=== PATIENT | female | born 1985 | race Caucasian/White ===

== ENCOUNTER → 2016-08-07 | Outpatient (CLI) | payer MEDICARE, MEDICAID ==
[~2016-08-07] MED LIST: AMOX-355 PO; AVIANE; BIRTH CONTROL; FLUO10CA29 PO; HYDR-3812 PO; LORA10CA PO; NITR100C3 PO; PEROXITINE
--- OUTSIDE RECORDS SUMMARY | 2016-08-07 08:54 | XMS REPORT | Continuity of Care Document ---
Author Author Interface Organization Interface Address Unknown Phone Unavailable Problems Problem Status Onset Date Classification Date Reported Comments Source Chiari malformation type II (disorder) Active Problem 10/2015 status post decompression, shunt insertion in the lumbar spine in 2000, revision of shunt in 2001 [facility] Depressive disorder (disorder) Active Problem 01/24/2016 [facility] History of calculus of kidney (situation) Resolved Problem 01/24/20162008, passed spontaneously [facility]. Liver function tests abnormal (finding) Active Problem [facility] Chiari malformation type II (disorder) Active Problem <sup>1</sup>status post decompression, shunt insertion in the lumbar spine in 2000, revision of shunt in 2001 [facility] Depressive disorder (disorder) Active Problem 04/10/2013 [facility] History of calculus of kidney (situation) Resolved Problem 04/10/2013 <sup>2</sup>2008, passed spontaneously [facility] Liver function tests abnormal (finding) Active Problem [facility] Care Chiari malformation type II (disorder) Active Problem 01/2015 status post decompression, shunt insertion in the lumbar spine in 2000, revision of shunt in 2001 [facility] Depressive disorder (disorder) Active Problem 01/26/2015 [facility] History of calculus of kidney (situation) Resolved Problem 01/26/20152008, passed spontaneously [facility] Liver function tests abnormal (finding) Active Problem [facility] Disturbance of skin sensation 01/22/2015 Diagnosis 2014 [facility]. Lumbar sprain 01/22/2015 Diagnosis 01/26/2015 [facility] With hydrocephalus, spina bifida, unspecified region 01/25/2015 Diagnosis 01/26/2015 [facility] Medications Medication Details Route Status Patient Instructions Ordering Provider Order Date Source No Known Medications No known medications Active [facility]. Reglan </br>10 mg=2 mL, Vial, IV Push, ONCE, Start Date: 01/19/16 17:00:00, Stop Date: 01/19/16 17:00:00 </br>Notes: Give over 2 minutes Common side effects: dizziness, headache, belly pain, restlessness, diarrhea. Inactive [facility]. Allergies, Adverse Reactions, Alerts Substance Category Reaction Severity Reaction type Status Date Reported Comments Source Sulfamethoxazole / Trimethoprim Assertion Drug allergy [facility]. codeine drug allergy Allergy Active [facility] acetaminophen-propoxyphene drug allergy Allergy Active [facility] meperidine drug allergy Allergy Active [facility] morphine drug allergy Allergy Active [facility] acetaminophen-oxycodone drug allergy Allergy Active [facility] ketorolac drug allergy Allergy Active [facility] Codeine Assertion Drug allergy [facility] Acetaminophen / Propoxyphene Assertion Drug allergy [facility]. Meperidine Assertion Drug allergy [facility] Morphine Assertion Drug allergy [facility] Acetaminophen / Oxycodone Assertion Drug allergy [facility]. Ketorolac Assertion Drug allergy [facility]. Immunizations Immunization Date Given Site Status Last Updated Comments Source No data available for this section No data available for this section [facility]. No data available for this section No data available for this section [facility]. Results Order Name Results Value Reference Range Date Interpretation Comments Source Vital Signs Vital Sign Value Date Comments Source Encounters Location Location Details Encounter Type Encounter Number Reason For Visit Attending Provider ADM Date DC Date Status Source [facility] [id number] Clinic ( Outpatient) [id number] EFFIE HALLMAN 04/06/2013 [facility] [id number] Emergency [id number] Osvaldo Peñanati 01/19/2016 01/19/2016 [facility] [id number] Emergency [id number] ABIEL CARRENO 01/16/2016 Active [facility] Emergency [id number] Lou Alcaraz 01/16/2016 [place]18/2016 [place] [facility] Emergency [id number] Noreen Crump 01/19/2016 [place]/21/[address] [facility] [id number] Gaby Ambrosio 01/22/2015 01/23/2015 [place] [facility] [id number] Clinic ( Outpatient) [id number] Gaby Ambrosio 01/22/2015 [facility] Procedures Procedure Code Date Perfomer Comments Source No data available for this section [facility].
--- NOTE | 2016-08-07 10:13 | Diagnostic Imaging Report ---
PROCEDURE: CT sinuses without contrast TECHNIQUE: Multiple contiguous axial images were obtained through the sinuses without the use of intravenous contrast. Coronal and sagittal reformations were then performed. INDICATION: Deviated septum. Nasal congestion. FINDINGS: There is mild mucosal thickening or mucous retention cyst in the posterior aspect of the left maxillary sinus. Partial opacification of the ethmoidal air cells on the left side is also seen. There is mild opacification in the sphenoidal sinuses as well. The frontal sinuses appear clear except for the inferior aspect on the left side. The ostiomeatal complex is patent on the right and obliterated with mucosal thickening on the left side. There is nasal septal deviation to the right. There is resulting narrowing of the upper nasal passages on the right side. There is also mild to moderate mucosal hypertrophy along the inferior turbinates more on the left. The orbits soft tissues appear symmetric. The mastoid air cells and middle ear cavities appear clear. IMPRESSION: Generally mild sinonasal disease. Dictated by: Dictated on workstation # [id number]
== END ==
LOC: RAD 08:50
PROVIDERS: ATTEND Otolaryngology Otolaryngology/Facial Plastic Surgery
DX: R09.81 Nasal congestion (principal); J34.2 Deviated nasal septum; J34.89 Other specified disorders of nose and nasal sinuses
CPT/HCPCS: 70486

== ENCOUNTER 2016-10-05 12:26 | Outpatient (CLI) | payer MEDICARE, MEDICAID ==
[~2016-10-05] VITALS: Ht 157.5 cm; Wt 52.7 kg
[~2016-10-05 12:26] MED LIST changes: -AMOX-355 PO; -FLUO10CA29 PO; -HYDR-3812 PO; -LORA10CA PO
[2016-10-05] MEDS ORDERED: FLUO10CA29 PO (12:53)
[2016-10-05] MEDS ORDERED: LORA10CA PO (12:53)
[2016-10-05 12:55] VITALS: BP 125/81
[2016-10-05 13:29] LABS: BASOPHILS % (AUTO) 0 % (0-10); EOSINOPHILS # (AUTO) 0.3 10^3/uL (0.0-0.3); EOSINOPHILS % (AUTO) 4 % (0-10); LYMPHOCYTES # (AUTO) 1.9 X 10^3 (1.0-4.0); LYMPHOCYTES % (AUTO) 26 % (12-44); MEAN CORPUSCULAR HEMOGLOBIN 28 PG (25-34); MEAN CORPUSCULAR HGB CONC 34 G/DL (32-36); MEAN CORPUSCULAR VOLUME 82 FL (80-99); MEAN PLATELET VOLUME 10.4 FL (7.4-10.4); MONOCYTES # (AUTO) 0.5 X 10^3 (0.0-1.0); MONOCYTES % (AUTO) 6 % (0-12); NEUTROPHILS # (AUTO) 4.8 X 10^3 (1.8-7.8); NEUTROPHILS % (AUTO) 64 % (42-75); PLATELET COUNT 205 10^3/uL (130-400); RED BLOOD COUNT 4.89 10^6/uL (4.35-5.85); RED CELL DISTRIBUTION WIDTH 12.9 % (10.0-14.5); WHITE BLOOD COUNT 7.5 10^3/uL (4.3-11.0)
[2016-10-05 14:03] LABS: ANION GAP 8 MMOL/L (5-14); BLOOD UREA NITROGEN 9 MG/DL (7-18); BUN/CREATININE RATIO 14; CALCIUM 9.4 MG/DL (8.5-10.1); CARBON DIOXIDE 22 MMOL/L (21-32); CHLORIDE 108 MMOL/L (98-107); CREATININE SERUM 0.64 MG/DL (0.60-1.30); GFR ESTIMATED > 60; GLUCOSE 82 MG/DL (70-105); POTASSIUM 4.3 MMOL/L (3.6-5.0); SODIUM 138 MMOL/L (135-145)
== END 2016-10-05 14:23 | disposition home or self-care (01) ==
LOC: PREOP 12:26
PROVIDERS: ATTEND Otolaryngology Otolaryngology/Facial Plastic Surgery
DX: Z01.812 Encounter for preprocedural laboratory examination (principal); Z11.2 Encounter for screening for other bacterial diseases; J34.2 Deviated nasal septum; J34.3 Hypertrophy of nasal turbinates
CPT/HCPCS: 36415; 80048; 85025; 87081

== ENCOUNTER 2016-10-09 06:35 | Day surgery (SDC) | payer MEDICARE, MEDICAID ==
[~2016-10-09] VITALS: Ht 157.5 cm; Wt 52.7 kg
[~2016-10-09 06:35] MED LIST changes: +FLUO10CA29 PO; +LORA10CA PO
[2016-10-09 06:45] VITALS: BP 112/76
--- NOTE | 2016-10-09 06:46 | Progress Note-Pre Operative ---
Pre-Operative Progress Note H&P Reviewed The H&P was reviewed, patient examined and no changes noted. Date H&P Reviewed: Oct 09, 2016 Time H&P Reviewed: 06:40 Pre-Operative Diagnosis: Deviated Nasal Septum, Bilat Hyper of Inf Turbs with Nasal Congestion KEVON IRVIN MD Oct 09, 2016 6:46 am
[2016-10-09] MEDS ORDERED: ROCURONIUM 50 MG/5 ML (ZEMURON) VIAL IV ONE (07:01)
[2016-10-09] MEDS ORDERED: SEVOFLURANE (ULTANE) 15 ML INHAL SOLN ONE ×4 (07:01→08:07)
[2016-10-09] MEDS ORDERED: DEXAMETHASONE PF 10 MG/ML (DECADRON) VIAL ONE (07:01)
[2016-10-09] MEDS ORDERED: LACTATED RINGERS 1,000 ML IV ONE ×2 (07:01→07:56)
[2016-10-09] MEDS ORDERED: ONDANSETRON 4 MG/2 ML (SDV) Z0FRAN ONE (07:01)
[2016-10-09] MEDS ORDERED: fentaNYL INJECTION 100 MCG/2 ML AMP ONE ×2 (07:01→08:33)
[2016-10-09] MEDS ORDERED: MIDAZOLAM 2 MG/2 ML (VERSED) VIAL ONE (07:02)
[2016-10-09] MEDS ORDERED: proPOfol 200 MG/20 ML (DIPRIVAN) VIAL IV ONE (07:02)
[2016-10-09] MEDS ORDERED: LIDOCAINE PF 2% 10 ML (XYLOCAINE) AMP ONE (07:02)
[2016-10-09] MEDS ORDERED: COCAINE HCL 4% 2 ML SYR ONE (07:06)
[2016-10-09] MEDS ORDERED: PHENYLEPHRINE 0.5% NASAL SPR (NEO-SYNEPHRINE) REG ONE (07:07)
[2016-10-09] MEDS ORDERED: LIDOCAINE/EPI 1%-1:100,000 (XYLOCAINE) 20ML ONE (07:07)
[2016-10-09] MEDS ORDERED: LACTATED RINGERS 1,000 ML IV PRN (07:39)
[2016-10-09] MEDS ORDERED: GLYCOPYRROLATE 0.2 MG/ML (ROBINUL) 2 ML VIAL ONE (08:07)
[2016-10-09] MEDS ORDERED: NEOSTIGMINE (BLOXIVERZ ) 1 MG/1ML 10 ML VIAL ONE (08:07)
[2016-10-09] MEDS ORDERED: ACETAMINOPHEN 325 MG TABLET/CAPLET (TYLENOL) PO PRN (08:15)
[2016-10-09] MEDS ORDERED: D5 1/2 NS W/KCL 20 MEQ/L 1,000 ML IV SCH (08:15)
[2016-10-09] MEDS ORDERED: HYDROcodone/APAP 5 MG/325 MG (LORTAB) TAB PO PRN (08:15)
[2016-10-09] MEDS ORDERED: ONDANSETRON 4 MG/2 ML (SDV) Z0FRAN IVP PRN (08:15)
--- NOTE | 2016-10-09 08:15 | Progress Note-Post Operative ---
Post-Operative Progess Note Surgeon (s)/Crab Backer (s) Surgeon KEVON IRVIN MD Crab Backer n/a Pre-Operative Diagnosis Deviated Nasal Septum, Bilat Hyper of Inf Turbs with Nasal Congestion Post-Operative Diagnosis same Post-Op Procedure Note Date of Procedure: Oct 09, 2016 Name of Procedure Performed: Nasal septoplasty, Bilat REd of INf Turbs Description & Findings Description and Findings: n/a Anesthesia Type get Estimated Blood Loss minimal Packing none. Specimen(s) collected/removed nasal septum KEVON IRVIN MD Oct 09, 2016 8:14 am
[2016-10-09] MEDS: fentaNYL INJECTION 100 MCG/2 ML AMP IVP PRN ×2 (08:40→08:45)
[2016-10-09] MEDS ORDERED: HYDR-3812 PO (09:13)
[2016-10-09] MEDS ORDERED: AMOX-355 PO (09:13)
[2016-10-09 09:20] VITALS: BP 115/79
[2016-10-09] MEDS: HYDROcodone/APAP 5 MG/325 MG (LORTAB) TAB PO PRN ×2 (09:30→09:55)
[2016-10-09 09:50] VITALS: BP 112/74
[2016-10-09 10:20] VITALS: BP_SYST 112; BP_SYST 117; BP_DIAS 70; BP_DIAS 74
== END 2016-10-09 10:50 | disposition home or self-care (01) ==
LOC: SDC 06:35
PROVIDERS: ATTEND Otolaryngology Otolaryngology/Facial Plastic Surgery
DX: J34.2 Deviated nasal septum (principal); J34.3 Hypertrophy of nasal turbinates
CPT/HCPCS: 84703; 88304

== ENCOUNTER 2016-11-08 01:57 | Emergency (ER) | payer MEDICARE, MEDICAID ==
[~2016-11-08] VITALS: Ht 157.5 cm; Wt 49.9 kg
[~2016-11-08 01:57] MED LIST changes: +AMOX-355 PO; +HYDR-3812 PO
[2016-11-08] MEDS ORDERED: TETANUS,DIPTH,PERTUSS P/F (BOOSTRIX) 0.5 ML VIAL IM STA (02:01)
[2016-11-08] MEDS ORDERED: L.E.T. SYRINGE 5 ML MM STA (02:01)
--- NOTE | 2016-11-08 02:17 | ED Fall/Injury ---
General Chief Complaint: Laceration Stated Complaint: ETOH Nursing Triage Note: PT TO ED 7 PER W/C W/ C/O LACERATION TO CHIN ONSET BODY WIRER AFTER FALLING AT "THE BREAK". PER PT'S FRIEND, PT HAS ETOH ON BOARD, POSS LOC NOTED PER PT ET FRIEND. PT TEARFUL, ASKING FOR HER DAD AT THIS TIME. Source: patient Exam Limitations: no limitations History of Present Illness Time seen by provider: 02:00 Initial Comments Here with report of laceration on her chin. She was at the bar drinking quite a bit when she fell and hit her face. Unsure loss of consciousness. She is interacting with her friend well. Unsure of last tetanus shot. No other injuries noted or reported. Occurred: just prior to arrival (30 minutes ago approximately) Severity: mild Injuries/Pain Location: face Context: lost balance Loss of Consciousness: unsure Associated Symptoms (Fall): No Abdominal Pain, No Chest Pain, No Neck Pain, Slurred Speech Allergies and Home Medications Allergies Coded Allergies: acetaminophen (Unverified Allergy, Mild, 10/05/16) meperidine (Unverified Allergy, Mild, 10/05/16) morphine (Unverified Allergy, Mild, DROWSINESS, 10/05/16) oxycodone (Unverified Allergy, Mild, 10/05/16) tramadol (Unverified Allergy, Mild, 10/05/16) Home Medications Fluoxetine HCl 10 Mg Capsule, 10 MG PO DAILY, (Reported) Loratadine 10 Mg Capsule, 10 MG PO DAILY, (Reported) Constitutional: see HPI, No chills, No fever Eyes: No Symptoms Reported Ears, Nose, Mouth, Throat: no symptoms reported Respiratory: no symptoms reported Cardiovascular: no symptoms reported Skin: see HPI, lesions (small laceration to the left side of the chin at the angle of jaw.) Past Qxbdgpt-Gsuzcw-Kihmum Hx Patient Social History Alcohol Use: Denies Use Recreational Drug Use: No Smoking Status: Never a Smoker 2nd Hand Smoke Exposure: No Recent Foreign Travel: No Contact w/Someone Who Travel: No Recent Infectious Disease Expo: No Recent Hopitalizations: No Seasonal Allergies Seasonal Allergies: Yes Surgeries HX Surgeries: Yes (BACK AND NECK FOR SCOLIOSIS) Surgeries: Section Respiratory Hx Respiratory Disorders: No Cardiovascular Hx Cardiac Disorders: No Neurological Hx 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) Reproductive System Hx Reproductive Disorders: No Sexually Transmitted Disease: No HIV/AIDS: No Female Reproductive Disorders: Denies Genitourinary Hx Genitourinary Disorders: Yes Genitourinary Disorders: Kidney Stones Gastrointestinal Hx Gastrointestinal Disorders: No Musculoskeletal Hx Musculoskeletal Disorders: Yes Musculoskeletal Disorders: Arthritis, Scoliosis, Chronic Back Pain Endocrine Hx Endocrine Disorders: No HEENT HX ENT Disorders: Yes (GLASSES, DEVIATED SEPTUM AND HYPERTROPHIED TURBINATES) Hearing Impairment: Denies Cancer Hx Cancer: No Psychosocial Hx Psychiatric Problems: Yes Behavioral Health Disorders: Anxiety, Depression Integumentary HX Skin/Integumentary Disorder: No Blood Transfusions Hx Blood Disorders: No Adverse Reaction to a Blood Tr: No (N/A) Reviewed Nursing Assessment Reviewed/Agree w Nursing PMH: Yes Family Medical History Significant Family History: No Pertinent Family Hx Physical Exam Vital Signs Vital Sign - Last 12Hours 11/08/16 01:57 Temp 99.9 Pulse 110 Resp 18 B/P (MAP) 126/91 Pulse Ox 97 O2 Delivery Room Air Capillary Refill : Less Than 3 Seconds General Appearance: WD/WN, no apparent distress HEENT: PERRL/EOMI, TMs normal, pharynx normal Neck: full range of motion, supple Cardiovascular: regular rate, rhythm, no murmur Respiratory: lungs clear, normal breath sounds Neurologic/Psychiatric: alert, other (slurred speech and smells of alcohol.) Skin: normal color, warm/dry, other (half centimeter laceration to the chin on the left side) Erving Coma Score Best Eye Response: (4) Open Spontaneously Best Verbal Response: (4) Confused Conversation Best Motor Response: (6) Obeys Commands Erving Total: 14 Laceration Repair : Wound Location: Face Other Wound Location Left-side of chin Wound's Depth, Shape: superficial Wound Explored: contaminated Irrigated w/ Saline (ccs): 20 Betadine Prep?: Yes (Hibiclens) Anesthesia: Lidocaine w/ Epi (LET) Wound Debrided: minimal Other Closure Supply: Wound Adhesive Progress Closed with Dermabond. Progress/Results/Core Measures Results/Orders My Orders Orders - ARIEL OSBORNE MD Dipht,Pertmack(Acell),Tet Adult (Boostrix (11/08/16 02:01) Let Solution (Let Solution) (11/08/16 02:01) Vital Signs/I&O Vital Sign - Last 12Hours 11/08/16 01:57 Temp 99.9 Pulse 110 Resp 18 B/P (MAP) 126/91 Pulse Ox 97 O2 Delivery Room Air Blood Pressure Mean: 103 Progress Note : Progress Note Seen and evaluated. Tetanus updated. LET applied to wound. Wound closure with Dermabond. Discharged home with return precautions. Patient verbalize understanding instructions and agreement with plan. Departure Impression Impression: Primary Impression: Facial laceration Qualified Codes: S01.81XA - Laceration without foreign body of other part of head, initial encounter Disposition: HOME, SELF-CARE Condition: Stable Departure-Patient Inst. Decision time for Depature: 02:18 Referrals: MICHAEL PINEDA MD (PCP) Primary Care Physician KALEE GONZALEZ APRN (Family) Primary Care Physician Patient Instructions: Laceration Repair With Glue (DC) Add. Discharge Instructions: All discharge instructions reviewed with patient and/or family. Voiced understanding. Leave glue in place until it falls off on its own. Do not cover with antibiotic ointment, makeup or any lotions/creams as this will prematurely remove the glue. You may use dry Band-Aid over wound. Return for worse pain, swelling, red streaks, foul-smelling drainage or other concerns as needed. You may take ibuprofen 600 mg every 8 hours as needed for pain. You may take Tylenol as needed per package directions for pain as well. ARIEL OSBORNE MD November 08, 2016 02:17
[2016-11-08 02:31] VITALS: BP 0/0
== END 2016-11-08 02:31 | disposition home or self-care (01) ==
LOC: EDUNIT# 01:57 → ER 01:59
DX: S01.81XA Laceration without foreign body of other part of head, initial encounter (principal); Z23 Encounter for immunization; F10.129 Alcohol abuse with intoxication, unspecified; W01.0XXA Fall on same level from slipping, tripping and stumbling without subsequent striking against object, initial encounter; Y99.8 Other external cause status
CPT/HCPCS: 12011; 90471; 90715

== ENCOUNTER 2018-12-13 10:22 | Emergency (ER) | payer MEDICARE ==
[~2018-12-13] VITALS: Ht 157.5 cm; Wt 52.2 kg
[~2018-12-13 10:22] MED LIST changes: +ACHD5005 PO; -HYDR-3812 PO
--- NOTE | 2018-12-13 11:27 | Diagnostic Imaging Report ---
PROCEDURE: CT cervical spine without contrast. TECHNIQUE: Multiple contiguous axial images were obtained through the cervical spine without the use of intravenous contrast. Sagittal and coronal reformations were then performed. Auto Exposure Controls were utilized during the CT exam to meet ALARA standards for radiation dose reduction. INDICATION: Nontraumatic neck pain. FINDINGS: Upper T-spine laminectomies have been performed to the defect as a cervical canalicular catheter is advanced with its distal tip at the C6 mid vertebral body level. There is a partial disc obliteration and ankylosis across the C3-C4 as well as the T2-T3 levels. There is left-sided facet ankylosis at the C3-C4 level and right-sided upper T-spine facet ankylosis. Acute bony abnormality is not identified. No paravertebral mass hemorrhage or fluid collection. There is previous occipital decompressive craniectomy. There is no mastoid effusion. The middle ear cavity is clear. There is a small amount of frothy debris within the partially visualized left sphenoid sinus and membrane thickening in the partially visualized left maxillary. IMPRESSION: Chronic bony changes and postoperative intervention. No acute cervical pathology found. Partial visualization of some paranasal sinus disease. No mass or fluid collection evident. Dictated by: Dictated on workstation # [id number]
--- NOTE | 2018-12-13 11:30 | Diagnostic Imaging Report ---
INDICATION: Pain TECHNIQUE: Three views of the right shoulder CORRELATION STUDY: None FINDINGS: There is no acute fracture or dislocation at the right shoulder. There is a abnormal somewhat thickened irregular appearance about the cortex of proximal right humeral shaft. Slight bony protuberance is present. Likely long-standing and chronic. Slightly thickened appearance about the scapula is also noted. There is partial visualization of apparent shunt tubing over the right chest. IMPRESSION: 1. Negative for acute fracture or dislocation of the right shoulder. Likely chronic change about the shoulder girdle. Dictated by: Dictated on workstation # [id number]
--- NOTE | 2018-12-13 11:33 | Diagnostic Imaging Report ---
PROCEDURE: CT right shoulder without contrast. TECHNIQUE: Multiple contiguous axial images were obtained through the right shoulder without the use of intravenous contrast. Sagittal and coronal reformations were then performed. Auto Exposure Controls were utilized during the CT exam to meet ALARA standards for radiation dose reduction. Date: December 13, 2018. Indication: 33-year-old female, right shoulder pain. No known injury. Comparison: None. Findings: The humeral head is normally positioned relative to the glenoid. There is no pronounced glenohumeral joint space loss. There is no osteophyte formation. There is no subchondral cystic change. The acromioclavicular joint is normally aligned. There are no prominent acromioclavicular degenerative changes. There is no os acromiale. There is no identified acute fracture. There are multiple abnormal osseous outpouchings which are contiguous with the intramedullary cavity compatible with multiple osteochondromas. A small lesion involving the distal clavicle at its anterior aspect is seen on axial image 36 measuring 4 x 4 mm in size. There are multiple osteochondromas of the right proximal humerus with perhaps the largest being a broad-based osteochondroma measuring up to approximately 2.2 cm in craniocaudal dimension at its base and having an axial dimension of roughly 0.9 x 1.0 cm. There is no finding to suggest malignant transformation of any of the osteochondroma is present. There is also an osteochondroma associated with the right-sided rib on axial image 149. There is an additional smaller osteochondroma associated with the right-sided rib on axial image 187. There is an osteochondroma arising from the inferior aspect of the scapula which is small in size. There is no fatty atrophy of the rotator cuff musculature. There is nondiagnostic direct assessment of the rotator cuff tendons on CT. The visualized portions of the right lung are clear. There is no obvious fluid collection or other soft tissue abnormality identified on CT. Impression: 1. Numerous benign osteochondromas which are involving the right distal clavicle, right proximal humerus, inferior scapula, and right-sided ribs. No finding to suggest malignant transformation or other complication. 2. Grossly unremarkable appearance of the glenohumeral and acromioclavicular joints. 3. No identified soft tissue abnormality on CT. Dictated by: Dictated on workstation # [id number]
[2018-12-13] MEDS ORDERED: METH4TAB PO (12:11)
--- NOTE | 2018-12-13 12:11 | ED Upper Extremity ---
General Chief Complaint: Upper Extremity Stated Complaint: RT SHOULDER PAIN Nursing Triage Note: AMB TO ROOM C/O R SHOULDER FOR 3 MONTHS WAS SEEN AT [facility] IN AUGUST GIVEN MEDS. WHICH HELPED SOME. CON'T TO HAVE PAIN WAS GIVNE A INJECTION 1 WEEK AGO AT [facility]. Nursing Sepsis Screen: No Definite Risk Source: patient History of Present Illness Date Seen by Provider: Dec 13, 2018 Time Seen by Provider: 10:33 Initial Comments PT ARRIVES VIA POV FROM HOME C/O RIGHT SHOULDER PAIN IS A CHRONIC PROBLEM, WORSE FOR 3 MONTHS AND IS NO DIFFERENT TODAY NO INJURY, BUT STATES THE LAST FEW MONTHS SHE HAS HAD TO LIFT HER GARAGE DOOR BECAUSE IT HAS BEEN BROKEN STATES PAIN IS BETTER AT TIMES, THEN WORSE AT TIMES STATES SHE HAS CHRONIC NECK AND BACK PAIN AND HAS HAD MULTIPLE SURGERIES ON NECK AND BACK AT [place]OTH AND "IN [place]" --DOES NOT HAVE A LOCAL ORTHOPEDIC SURGEON NO PARESTHESIAS OR MOTOR DEFICITS FOR THE MOST PART, BUT STATES "WHEN THE PAIN GETS BAD, SOMETIMES I GET TINGLING IN MY FINGERTIPS" STATES PAIN IS ALSO TO RIGHT LATERAL NECK/TRAPEZIUS AREA. STATES SHE WAS SEEN AT [facility] FOR THIS PROBLEM IN AUGUST AND WAS GIVEN AN UNKNOWN ANTI-INFLAMMATORY--STATES IT DID HELP AT TIMES WENT BACK TO [facility] 1 WEEK AGO AND GOT A STEROID INJECTION "SOMEWHERE IN MY UPPER BACK" --HELPED A LITTLE BIT STATES SHE HAS NOT TAKEN ANYTHING FOR PAIN TODAY STATES SHE TOOK A HYDROCODONE AT 2200 LAST PM--TAKES " NEEDED" FOR CHRONIC NECK AND BACK PAIN PT IS RIGHT HANDED LMP 11/21/18, NORMAL. HAS IUD IN PLACE PCP: [facility] Allergies and Home Medications Allergies Coded Allergies: acetaminophen (Unverified Allergy, Mild, 10/05/16) meperidine (Unverified Allergy, Mild, 10/05/16) morphine (Unverified Allergy, Mild, DROWSINESS, 10/05/16) oxycodone (Unverified Allergy, Mild, 10/05/16) tramadol (Unverified Allergy, Mild, 10/05/16) Home Medications Fluoxetine HCl 10 Mg Capsule, 10 MG PO DAILY, (Reported) Loratadine 10 Mg Capsule, 10 MG PO DAILY, (Reported) Methylprednisolone 4 Mg Tab.ds.pk, 4 MG PO UD Prescribed by: MODESTA GREEN on 12/13/18 1211 Patient Home Medication List Home Medication List Reviewed: Yes Review of Systems Constitutional: no symptoms reported EENTM: no symptoms reported Respiratory: no symptoms reported Cardiovascular: no symptoms reported Gastrointestinal: no symptoms reported Genitourinary: no symptoms reported LMP: Nov 21, 2018 Control/STD Prophylaxis: IUD Musculoskeletal: see HPI Skin: no symptoms reported Psychiatric/Neurological: See HPI; Denies Headache Past Utwlhlk-Pgvccj-Rkmmhz Hx Patient Social History Alcohol Use: Occasionally Uses Recreational Drug Use: No Smoking Status: Never a Smoker 2nd Hand Smoke Exposure: No Recent Foreign Travel: No Contact w/Someone Who Travel: No Recent Infectious Disease Expo: No Recent Hopitalizations: No Seasonal Allergies Seasonal Allergies: Yes Past Medical History Surgeries: Yes (BACK AND NECK FOR SCOLIOSIS--STATES SHE HAS HAD 7 SURGERIES ON HER NECK AND BACK--AT AND "[place]"; MEAT TRIMMER SHUNT; SURGERY FOR ARNOLD-CHIARI SYNDROME) Section, Neurological, Orthopedic Respiratory: No Cardiac: No Neurological: Yes (MEAT TRIMMER SHUNT; ARNOLD-CHIARI SYNDROME) Reproductive Disorders: No Female Reproductive Disorders: Denies 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 Sexually Transmitted Disease: No HIV/AIDS: No Genitourinary: Yes Kidney Stones Gastrointestinal: No Musculoskeletal: Yes (CHRONIC NECK AND BACK PAIN ) Arthritis, Scoliosis, Chronic Back Pain Endocrine: No Hearing Impairment: Denies Cancer: No Psychosocial: Yes Anxiety, Depression Integumentary: No Blood Disorders: No Adverse Reaction/Blood Tranf: No (N/A) Family Medical History No Pertinent Family Hx Physical Exam Vital Signs Vital Signs - First Documented 12/13/18 10:28 Temp 98.2 Pulse 81 Resp 18 B/P (MAP) 136/71 (92) Pulse Ox 100 O2 Delivery Room Air Capillary Refill : Less Than 3 Seconds Height, Weight, BMI Height: 5'2.00" Weight: 115lbs. 3.0oz. 52.052159gx; 21.3 BMI Method:Stated General Appearance: WD/WN, no apparent distress, other Neck: non-tender, full range of motion, supple, normal inspection Cardiovascular: normal peripheral pulses, regular rate, rhythm, no murmur Respiratory: normal breath sounds, no respiratory distress, no accessory muscle use Gastrointestinal: soft Back: no CVA tenderness, no vertebral tenderness Shoulder: normal inspection, non-tender, no evidence of injury, normal ROM Elbow/Forearm: normal inspection Wrist: Yes normal inspection Hand: normal inspection Neurologic/Tendon: normal sensation, normal motor functions, normal tendon functions 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, no motor/sensory deficits, alert, normal mood/affect, oriented x 3 Skin: normal color, warm/dry; No rash Progress/Results/Core Measures Results/Orders My Orders Orders - MODESTA GREEN DO Ct Cervical Spine Wo (12/13/18 10:39) Ct Extremity Upper Right Wo (12/13/18 10:39) Shoulder, Right, 3 Views (12/13/18 10:39) Vital Signs/I&O 12/13/18 12/13/18 10:28 12:16 Temp 98.2 98.2 Pulse 81 81 Resp 18 18 B/P (MAP) 136/71 (92) 136/71 (92) Pulse Ox 100 100 O2 Delivery Room Air Blood Pressure Mean: 92 Progress Progress Note : Progress Note UNEVENTFUL ER STAY PT STATES THAT PAIN IS ONLY WITH CERTAIN MOVEMENTS OR POSITIONS, OR WHEN SHE TRIES TO SLEEP--POINTS TO RIGHT TRAPEZIUS AND SHOULDER AND UPPER ARM AREA AREAS OF PAIN NO TENDERNESS TO THESE AREAS AT DISMISSAL, PT STATES SHE ALSO TAKES TIZANIDINE ON AN " NEEDED" BASIS, BUT HAS NOT TAKEN ANY TODAY OR FOR THE LAST WEEK Diagnostic Imaging Comments XRAYS RIGHT SHOULDER--CHRONIC CHANGES, NO ACUTE PROCESS CT CERVICAL SPINE--NO ACUTE PROCESS, POSTOP AND CHRONIC CHANGES CT RIGHT SHOULDER/UPPER ARM--NO ACUTE PROCESS, CHRONIC CHANGES ALL PER RADIOLOGIST REPORTS AT 1202 Reviewed: Reviewed by Me Departure Impression Primary Impression: Chronic neck and back pain Additional Impression: Chronic right shoulder pain Disposition: 01 HOME, SELF-CARE Condition: Stable Departure-Patient Inst. Referrals: [facility] (PCP/Family) Primary Care Physician Patient Instructions: Chronic Neck Pain (DC), Chronic Pain (DC) Add. Discharge Instructions: ALTERNATE ICE AND HEAT TO SORE AREA AT 20 MINUTE INTERVALS TAKE YOUR TIZANIDINE FOR MUSCLE SPASMS TAKE YOUR HYDROCODONE PRESCRIBED FOR PAIN FOLLOW UP WITH [facility] THIS WEEK FOR FURTHER CARE All discharge instructions reviewed with patient and/or family. Voiced understanding. Scripts Methylprednisolone (Medrol) 4 Mg Tab.ds.pk 4 MG PO UD, #1 PKG Prov: MODESTA GREEN DO 12/13/18 MODESTA GREEN DO Dec 13, 2018 12:11
[2018-12-13 12:16] VITALS: BP 136/71
== END 2018-12-13 12:19 | disposition home or self-care (01) ==
LOC: EDUNIT# 10:22 → ER 10:24
DX: M25.511 Pain in right shoulder (principal); M54.2 Cervicalgia; M54.6 Pain in thoracic spine; G89.29 Other chronic pain; F41.9 Anxiety disorder, unspecified; F32.9 Major depressive disorder, single episode, unspecified; Z87.442 Personal history of urinary calculi; Z88.5 Allergy status to narcotic agent; Z90.710 Acquired absence of both cervix and uterus
CPT/HCPCS: 72125; 73030; 73200

== ENCOUNTER 2021-04-10 05:42 | Outpatient (CLI) | payer MEDICARE ==
[~2021-04-10] VITALS: Ht 157.5 cm; Wt 54.4 kg
[~2021-04-10 05:42] MED LIST changes: +METH4TAB PO
[2021-04-11] MEDS ORDERED: LINA145C PO (13:09)
[2021-04-11] MEDS ORDERED: TIZA4TAB4 PO (13:09)
[2021-04-11] MEDS ORDERED: ALPR0.5T7 PO (13:09)
[2021-04-11] MEDS ORDERED: LORA10TA76 PO (13:09)
[2021-04-11] MEDS ORDERED: NF-NORETH5 PO (13:09)
[2021-04-11] MEDS ORDERED: TRZ50T PO (13:09)
== END 2021-04-11 13:23 | disposition home or self-care (01) ==
LOC: PREOP 05:42
PROVIDERS: ATTEND Surgery
DX: Z01.818 Encounter for other preprocedural examination (principal)

== ENCOUNTER 2021-04-17 05:55 | Day surgery (SDC) | payer MEDICARE ==
[2021-04-17] VITALS (10 sets, daily range): BP systolic 119–146; BP diastolic 75–94
[~2021-04-17] VITALS: Ht 157 cm; Wt 54.4 kg
[~2021-04-17 05:55] MED LIST changes: +ALPR0.5T7 PO; +LINA145C PO; +LORA10TA76 PO; +NF-NORETH5 PO; +TIZA4TAB4 PO; +TRZ50T PO
[2021-04-17] MEDS ORDERED: ceFAZolin INJECTION 1,000 MG in WATER (STERILE) FOR INJECTION 10 ML IV ONE (06:45)
[2021-04-17] MEDS ORDERED: ceFAZolin INJECTION 1,000 MG ONE (06:58)
[2021-04-17] MEDS: LACTATED RINGERS 1,000 ML IV PRN ×2 (07:00→08:35)
[2021-04-17] MEDS ORDERED: MIDAZOLAM 2 MG/2 ML (VERSED) VIAL IV ONE (07:15)
[2021-04-17] MEDS ORDERED: LIDOCAINE/EPI 1%-1:100,000 (XYLOCAINE) 20ML ONE (07:23)
[2021-04-17] MEDS ORDERED: proPOfol 200 MG/20 ML (DIPRIVAN) VIAL IV ONE (07:27)
[2021-04-17] MEDS ORDERED: fentaNYL INJ 100 MCG/2 ML AMP ONE ×2 (07:27→08:30)
[2021-04-17] MEDS ORDERED: ONDANSETRON 4 MG/2 ML (SDV) Z0FRAN ONE (07:27)
[2021-04-17] MEDS ORDERED: ROCURONIUM 10 MG/ML 5 ML SYRINGE IV ONE (07:27)
[2021-04-17] MEDS ORDERED: MIDAZOLAM 2 MG/2 ML (VERSED) VIAL ONE (07:27)
[2021-04-17] MEDS ORDERED: LIDOCAINE PF 2% 5 ML (XYLOCAINE) VIAL ONE (07:27)
[2021-04-17] MEDS ORDERED: SEVOFLURANE (ULTANE) 15 ML INHAL SOLN ONE ×2 (07:27→08:23)
--- NOTE | 2021-04-17 07:56 | Progress Note-Pre Operative ---
Pre-Operative Progress Note H&P Reviewed The H&P was reviewed, patient examined and no changes noted. Date Seen by Provider: Apr 17, 2021 Time Seen by Provider: 07:45 Date H&P Reviewed: Apr 17, 2021 Time H&P Reviewed: 07:45 Pre-Operative Diagnosis: symptomatic cholelithiasis JASS NEELY DO Apr 17, 2021 07:56
[2021-04-17] MEDS ORDERED: NEOSTIGMINE 3 MG/3 ML VIAL ONE (08:49)
[2021-04-17] MEDS ORDERED: GLYCOPYRROLATE 0.2 MG/ML (ROBINUL) 2 ML VIAL ONE (08:49)
--- NOTE | 2021-04-17 08:51 | Progress Note-Post Operative ---
Post-Operative Progess Note Surgeon (s)/Wet Trimmer (s) Surgeon JASS NEELY DO Wet Trimmer: Dr. Isaac to assist in retraction dissection and closure. Pre-Operative Diagnosis symptomatic cholelithiasis Post-Operative Diagnosis same Procedure & Operative Findings Date of Procedure 04/17/21 Procedure Performed/Findings PROCEDURE: Laparoscopic cholecystectomy with intraoperative cholangiogram. COMPLICATIONS: None. PROCEDURE: The patient was taken to the operating suite and was prepped and draped in sterile fashion. A surgical pause was performed. Just superior to the umbilicus, a 12 mm incision was made. Dissection was taken down to the fascia, which was then scored and grasped with a Jb and the abdomen was then entered. A 0 Vicryl suture was placed in a [id number]-db-cxfci fashion and a Boss trocar was placed and secured. Pneumoperitoneum was achieved. A 5mm trochar place in the subxyphoid and 2 in the right upper quadrant. The gallbladder was then grasped and elevated. Adhesions to the gallbladder were dissected off with the [place]. The cystic duct, and cystic artery were then dissected out. Clip was placed on the distal portion of the cystic duct which was then partially transected. An arrow catheter was inserted into the duct. The cholangiogram was then performed. No filing defects and contrast made its way into the duodenum. Catheter removed. Clips were placed on proximal portion of the cystic duct and then the duct was then transected. Clips were placed along the proximal and distal portion of the cystic artery which was then transected. Hook cautery was used to dissect the gallbladder from the gallbladder fossa achieving hemostasis. The gallbladder was placed in an Endobag and removed through the 12 mm trocar site. The abdomen was then reinspected. Copious amounts of irrigation were used to irrigate the abdomen and there were no signs of active bleeding. Hemostasis had been achieved. The 12 mm fascial defect was then closed with 0 Vicryl suture that had been placed in a ezmtde-eu-izibl fashion. The abdomen was then desufflated, the trocars were removed. The abdomen was then washed and dried. The skin was then closed using 4-0 Monocryl in a subcuticular fashion. The abdomen was washed and dried and Skin Affix was place over incisions. Patient tolerated the procedure well without any complications and was taken to the recovery room in stable condition. Anesthesia Type general Estimated Blood Loss Estimated blood loss (mL): minimal Specimens/Packing Specimens Removed gallbladder JASS NEELY DO Apr 17, 2021 08:51
[2021-04-17] MEDS ORDERED: ACHD5005 PO (08:52)
--- NOTE | 2021-04-17 08:53 | Discharge Inst-Simple/Standard ---
Discharge Inst-Standard Discharge Medications New, Converted or Re-Newed RX: Transmitted to Pharmacy Patient Instructions/Follow Up Plan of Care/Instructions/FU: Carlos 2 weeks. Activity as Tolerated: No Discharge Diet: Regular Diet Other Inst to Patient Follow up Appt: Make appointment for 2 weeks. Instructions: No lifting greater than 10 pounds. No strenuous activity. May shower in 24 hours, no tub bath or soaking. Use incentive spirometer at home as directed. No Smoking Skin/Wound Care: You have special glue over incision, it will fall off on it's own. Symptoms to Report: Appetite Changes, Extremity Discoloration, Numbness/Tingling, Swelling Increased, Bleeding Excessive, Eyesight Changes, Pain Increased, Urine Color Change, Constipation(Persistent), Fever over 101 degree F, Pain/Pressure in chest, Urinating Difficulty, Cough Up/Vomit Blood, Heart Beat Irreg/Pounding, Pain/Pressure in jaw, Vaginal Bleeding Increase, Cramps in feet or legs, Lightheadedness, Pain/Pressure in shoulder, Diarrhea(Persistent), Memory Changes Suddenly, Questions/Concerns, Weight gain consecutive days, Dizziness/Fainting, Nausea/Vomiting, Shortness of Breath, Weight gain over 2 pounds. If eyes or skin turn yellow notify physician. If questions or concerns contact your physician Or seek help at emergency department. JASS NEELY DO Apr 17, 2021 08:53
[2021-04-17] MEDS ORDERED: fentaNYL INJ 100 MCG/2 ML AMP IVP ONE (09:15)
[2021-04-17] MEDS ORDERED: ONDANSETRON 4 MG/2 ML (SDV) Z0FRAN IVP PRN (09:15)
--- NOTE | 2021-04-17 09:54 | Diagnostic Imaging Report ---
Indication: Laparoscopic cholecystectomy. 8 seconds of fluoroscopy time utilized during intraoperative cholangiography. The submitted images showed opacification of the central intrahepatic bile ducts. The common bile duct and the common hepatic ducts spilling into the duodenum. No stricture or filling defect. Impression: Fluoroscopy utilized during intraoperative cholangiography. The submitted images showed no pathological finding. Dictated by: Dictated on workstation # [id number]
[2021-04-17] MEDS ORDERED: HYDROcodone/APAP 5 MG/325 MG (LORTAB) TAB PO ONE (10:30)
--- NOTE | 2021-04-17 10:54 | Anesthesia-General Post-Op ---
General Patient Condition Mental Status/LOC: Same as Preop Cardiovascular: Satisfactory Nausea/Vomiting: Absent Respiratory: Satisfactory Pain: Controlled Complications: Absent Post Op Complications Complications None Follow Up Care/Instructions Patient Instructions None needed. Anesthesia/Patient Condition Patient Condition Patient is doing well, no complaints, stable vital signs, no apparent adverse anesthesia problems. No complications reported per nursing. EMILY BEE CRNA Apr 17, 2021 10:54
== END 2021-04-17 11:10 | disposition home or self-care (01) ==
LOC: SDC 05:55
PROVIDERS: ATTEND Surgery
DX: K80.10 Calculus of gallbladder with chronic cholecystitis without obstruction (principal); Z79.899 Other long term (current) drug therapy; Z79.3 Long term (current) use of hormonal contraceptives; Z11.2 Encounter for screening for other bacterial diseases; Z88.5 Allergy status to narcotic agent; Z88.6 Allergy status to analgesic agent
CPT/HCPCS: 76000; 84703; 87081

== ENCOUNTER → 2021-08-18 | Outpatient (CLI) | payer MEDICARE ==
[~2021-08-18] MED LIST changes: +TIZA-186 PO; -TIZA4TAB4 PO
--- NOTE | 2021-08-18 09:55 | Diagnostic Imaging Report ---
Technique: Multiplanar multisequence MRI of the thoracic spine was performed without contrast. Reason for exam: Increased mid back pain. History of spina bifida. History of Chiari malformation. COMPARISON: None. FINDINGS: No acute fracture or dislocation is seen in the thoracic spine. There is slight left convexity curvature of the thoracic spine. [place]-vertebral bodies and butterfly vertebral bodies are visualized from the T1-T3 levels. No acute fractures seen in the thoracic spine. No focal osseous lesions are identified. The bone marrow signal is unremarkable. Prior laminectomy changes are visualized from T1 to T3. Laminectomy changes are also present at the T11 and T12 levels. Syrinx is seen throughout the thoracic spine. There is tethering of the thoracic spinal cord to the posterior aspect of the spinal canal at the T1-T2 level. Similar tethering is also seen in the included lower thoracic spine at the T11-T12 level. No evidence of mass. No evidence of epidural collections. No high-grade spinal canal or foraminal stenosis is seen in the thoracic spine. The included lungs are clear. The paraspinal soft tissues are unremarkable. IMPRESSION: 1. Syrinx throughout the thoracic spine with tethering of the thoracic spinal cord at the posterior aspect of the spinal canal in the upper and lower thoracic spine. No evidence of mass or epidural collection. 2. No acute fracture or dislocation in the thoracic spine. 3. 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 Dictated by: Dictated on workstation # [id number]
--- NOTE | 2021-08-18 11:06 | Diagnostic Imaging Report ---
CLINICAL INDICATION: Patient has increased spine pain. EXAM: MRI of the lumbar spine performed without IV contrast. Sagittal T2, coronal T2, sagittal T1, sagittal T2 fat-sat, axial T1, and axial T2. COMPARISON: MRI of the lumbar spine without contrast dated 04/22/2015. FINDINGS: There is dextroscoliosis of the lumbar spine. 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 There is fusion of the suspected L2, L3, and L4 regions. There is no significant change to the roughly 59% of dextrorotoscoliosis of the lumbar spine with apex at the suspected L3 right-sided butterfly vertebra. There is a stable visualized syrinx involving the visualized distal thoracic spinal cord, which measures up to 4 mm. The conus medullaris tip is seen at the upper L1 vertebral body level. There is no significant paraspinal soft tissue abnormality. There is severe central canal stenosis at the L4-L5 level with severe bilateral facet arthropathy and ligamentum flavum buckling. There is severe right L4-L5 neural foramen narrowing and moderate left L4-L5 neural foramen narrowing. There is moderate right L5-S1 neural foramen narrowing and no significant left L5-S1 neural foramen narrowing. There is at least moderate right T12-L1 neural foramen narrowing. The degenerative findings have not significantly changed in the interim. 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 2: Stable partially visualized syrinx involving the visualized distal thoracic spinal cord. 3: There is no significant change to the associated lumbar spine degenerative changes with multilevel neural foramen narrowing, as described above. 4: There is no significant change to the severe central canal stenosis at the L4-L5 level with severe bilateral facet arthropathy. There is severe right and moderate left L4-L5 neural foramen narrowing. Dictated by: Dictated on workstation # [id number]
== END ==
LOC: RAD 08:45
PROVIDERS: ATTEND Pediatrics
DX: M48.07 Spinal stenosis, lumbosacral region (principal); M47.816 Spondylosis without myelopathy or radiculopathy, lumbar region; M48.05 Spinal stenosis, thoracolumbar region; M41.86 Other forms of scoliosis, lumbar region; Q85.00 Neurofibromatosis, unspecified; Z87.798 Personal history of other (corrected) congenital malformations
CPT/HCPCS: 72146; 72148